=== PATIENT | female | born 1995 | race Caucasian/White ===

== ENCOUNTER 2017-02-25 14:18 | Emergency (ER) | payer OTHER ==
[2017-02-25 14:25] VITALS: BP 122/66; PULSE 86; TEMP 98; BMI 30.1
--- NOTE | 2017-02-25 15:15 | PDOC ---
History of Present Illness - General Chief Complaint: Bite Stated Complaint: SWOLLEN ARM Time Seen by Provider: 02/25/17 14:42 History Source: Patient Exam Limitations: No Limitations - History of Present Illness Initial Comments: 02/25/17 15:19 Patient is a 21-year-old female with no past medical history presenting to the emergency department today complaining of right arm swelling. Patient states that she has 3 areas on her arm that swelled up overnight. Does not remember getting bit by any bugs, but admits that these areas appear like bug bites. Admits to itching, pain and swelling. Denies numbness tingling or weakness to the arm. Patient is right-hand dominant. Past History - Travel Traveled outside of the country in the last 30 days: No Close contact w/someone who was outside of country & ill: No - Past Medical History Allergies/Adverse Reactions: Allergies Allergy/AdvReac Type Severity Reaction Status Date / Time morphine Allergy Severe Verified 02/25/17 14:25 milk Allergy Verified 02/25/17 14:25 Home Medications: Ambulatory Orders Methylprednisolone [Medrol Dose Dinesh] 4 mg PO ASDIR #21 tablet 02/25/17 Anemia: No Asthma: No Cancer: No Cardiac Disorders: No Diabetes: No HTN: No Suicide Attempt (Hx): No Seizures: No Thyroid Disease: No - Reproductive History (#): 1 Para: 0 Ectopic : Yes Therapeutic (s) & number: Yes - Immunization History Immunization Up to Date: Yes - Psycho/Social/Smoking Cessation Hx Anxiety: No Suicidal Ideation: No Smoking Status: Yes Smoking History: Never smoked Have you smoked in the past 12 months: No Number of Cigarettes Smoked Daily: 2 Cigars Per Day: 0 Information on smoking cessation initiated: No Hx Alcohol Use: No Drug/Substance Use Hx: No Substance Use Type: None Hx Substance Use Treatment: No Review of Systems - Review of Systems Able to Perform ROS?: Yes Is the patient limited Icelandic proficient: No Constitutional: No: Chills, Fever, Weakness HEENTM: No: Recent change in vision, Ear Pain, Nose Pain, Throat Pain Integumentary: Yes: Erythema (R arm), Lesions (Bites, R arm), Pruritus (R arm), Other (Swelling R arm) *Physical Exam - Vital Signs Last Vital Signs Temp Pulse Resp BP Pulse Ox 98 F 86 18 122/66 100 02/25/17 14:23 02/25/17 14:23 02/25/17 14:23 02/25/17 14:23 02/25/17 14:23 - Physical Exam General Appearance: Yes: Nourished, Appropriately Dressed. No: Apparent Distress Neck: positive: Trachea midline, Supple. negative: Tender, Rigid, Lymphadenopathy (R), Lymphadenopathy (L) Respiratory/Chest: positive: Lungs Clear, Normal Breath Sounds. negative: Respiratory Distress, Accessory Muscle Use, Rhonchi, Stridor, Wheezing Cardiovascular: positive: Regular Rhythm, Regular Rate, S1, S2 (present) Extremity: positive: Normal Capillary Refill, Normal Range of Motion. negative : Normal Inspection (See skin exam) Integumentary: positive: Dry, Warm, Erythema (3 circular areas of erythma with significant on the R arm (bicep, forearm and 2nd finger) All three areas have small bite heath in the center. ), Swelling Neurologic: positive: secret code expert II-XII NML intact, Fully Oriented, Alert, Normal Mood/ Affect, Normal Response, Motor Strength 5/5 Medical Decision Making - Medical Decision Making 02/25/17 22:53 Patient has 3 separate bug bites on her R arm that have significant swelling. Patient states that these are very itchy and painful. However patient's vital signs are stable afebrile and shows no signs of infection. We will discharge home at this time with a Medrol Dosepak to reduce the swelling. We'll also advised patient to use Benadryl cream [id number] for the itching. Patient may apply ice to the area to reduce the swelling. Patient understands all discharge instructions and we'll discharge home at this time. *DC/Admit/Observation/Transfer Diagnosis at time of Disposition: Insect bite Qualifiers: Encounter type: initial encounter Qualified Code(s): W57.XXXA - Bitten or stung by nonvenomous insect and other nonvenomous arthropods, initial encounter - Discharge Dispostion Admit: No - Prescriptions Prescriptions: Methylprednisolone [Medrol Dose Dinesh] 4 mg PO ASDIR #21 tablet - Patient Instructions Printed Discharge Instructions: DI for Insect Bites and Stings Additional Instructions: You have swelling around bug bites. You were prescribed a medrol dose pack. This is a steroid that will help to reduce the swelling and itching. Take this medication as prescribed and take the complete dose. You may take Motrin as needed for pain. You may also use a Benadryl cream topically to help with the itching. This is found over the counter. You may also ice the area to help with the pain. Return to the ED if the swelling gets worse, or if you develop signs of infection such as fevers, chills, or foul smelling drainage. - Post Discharge Activity Work/School Note: Back to Work
[2017-02-25] MEDS ORDERED: KETOROLAC TROMETHAMINE 60 MG/2 ML VIAL IM ONE (15:26)
[2017-02-25] MEDS ORDERED: KETOROLAC TROMETHAMINE 60 MG/2 ML VIAL ONE ×2 (15:30→15:31)
== END 2017-02-25 16:08 | disposition home or self-care (01) ==
LOC: JERFT 14:18
PROC: 3E0233Z Introduction of Anti-inflammatory into Muscle, Percutaneous Approach (ICD-10-PCS; principal; 2017-02-25)
DX: S40.861A Insect bite (nonvenomous) of right upper arm, initial encounter (principal); W57.XXXA Bitten or stung by nonvenomous insect and other nonvenomous arthropods, initial encounter; Y93.89 Activity, other specified; Y92.238 Other place in hospital as the place of occurrence of the external cause; Y99.8 Other external cause status
CPT/HCPCS: 99281-25

== ENCOUNTER 2017-05-22 10:55 | Emergency (ER) | payer SELFPAY ==
[2017-05-22 11:06] VITALS: TEMP 98.6; BMI 29.7
--- NOTE | 2017-05-22 11:12 | PDOC ---
History of Present Illness - General Chief Complaint: Pain, Acute Stated Complaint: VAGINAL PAIN Time Seen by Provider: 05/22/17 11:11 History Source: Patient Exam Limitations: No Limitations - History of Present Illness Initial Comments: CHIEF COMPLAINT: 21 y/o afebrile female, , c/o right lower abdominal/ pelvic pain x 4 years. HISTORY OF PRESENT ILLNESS: The patient states her LMP was 04/17/17. She states 4 days ago she started having right lower abdominal/cramping pain that is intermittent. On that day she had brown vaginal discharge but that has resolved and also admits to mild dysuria. She states she has had ovarian cysts in the past and the pain kind of feels like that but she states there is a chance she could be and she is concerned for STDs. She denies f/c, n/v /d, CP, SOB, back pain. Vital signs on arrival are within normal limits. REVIEW OF SYSTEMS: GENERAL/CONSTITUTIONAL: No fever/chills. No weakness. No weight change. HEAD, EYES, EARS, NOSE AND THROAT: No change in vision. No ear pain or discharge. No sore throat. CARDIOVASCULAR: No chest pain or shortness of breath. RESPIRATORY: No cough, wheezing, or hemoptysis. GASTROINTESTINAL: +right lower abd/pelvic pain. No nausea, vomiting, diarrhea, constipation +scant brown vaginal discharge - resolved GENITOURINARY: No dysuria, frequency, or change in urination. MUSCULOSKELETAL: No joint or muscle swelling or pain. No neck or back pain. SKIN: No rash or easy bruising. NEUROLOGIC: No headache, vertigo, loss of consciousness, or loss of sensation. PHYSICAL EXAM: GENERAL: The patient is awake, alert, and fully oriented, in no acute distress. She is very well appearing, ambulatory, in NAD or obvious discomfort. HEAD: Normal with no signs of trauma. ENT: Pupils equal, round and reactive to light, extraocular movements intact, sclera anicteric, conjunctiva clear. Neck supple. LUNGS: Clear to auscultation bilaterally. Normal excursion. No respiratory distress or use of accessory muscles. CV: RRR, S1/S2, no MRG. Cap refill < 2 sec. ABDOMEN: Soft, non-distended, TTP of RLQ and right pelvis. No flank pain. No rebound, guarding or rigidity. BACK: No CVA TTP b/l. VAGINAL: Speculum exam reveals no abnormal discharge or bleeding; no lacerations or lesions. Os closed. Digital exam reveals right adnexal tenderness and CMT. EXTREMITIES: Normal range of motion, no edema. NEUROLOGICAL: Normal speech, normal gait. CN II-XII grossly intact. PSYCH: Normal mood, normal affect. SKIN: Warm, dry, normal turgor, no rashes or lesions noted. Past History - Past Medical History Allergies/Adverse Reactions: Allergies Allergy/AdvReac Type Severity Reaction Status Date / Time milk Allergy Severe Hives Verified 05/22/17 11:02 morphine Allergy Severe Difficulty Verified 05/22/17 11:02 Breathing Home Medications: Ambulatory Orders NK [No Known Home Medication] 05/22/17 Anemia: No Asthma: No Cancer: No Cardiac Disorders: No Diabetes: No HTN: No Suicide Attempt (Hx): No Seizures: No Thyroid Disease: No - Reproductive History (#): 1 Para: 0 Ectopic : Yes Therapeutic (s) & number: Yes - Immunization History Immunization Up to Date: Yes - Psycho/Social/Smoking Cessation Hx Anxiety: No Suicidal Ideation: No Smoking Status: Yes Smoking History: Never smoked Have you smoked in the past 12 months: No Number of Cigarettes Smoked Daily: 2 Cigars Per Day: 0 Hx Alcohol Use: Yes Drug/Substance Use Hx: No Substance Use Type: Marijuana Hx Substance Use Treatment: No Abd/GI Specific PMHX - Complaint Specific PMHX GERD: No *Physical Exam - Vital Signs Last Vital Signs Temp Pulse Resp BP Pulse Ox 98.6 F 87 18 125/75 100 05/22/17 11:03 05/22/17 11:03 05/22/17 11:03 05/22/17 11:03 05/22/17 11:03 ED Treatment Course - LABORATORY CBC & Chemistry Diagram: 05/22/17 11:53 05/22/17 11:53 Medical Decision Making - Medical Decision Making A/P: 21 y/o afebrile female with right pelvic pain x 4 days. Plan is as follows: 1. Labs 2. UA/culture 3. GC/chlamydia 4. Ultrasound hcg + Ordered Beta hcg Ordered transvaginal US to r/o ectopic Transvaginal Ultrasound IMPRESSION: Possible early IUP with gestational age of 5 weeks. Blood type O Negative. Ordered Rhogam. Gave the patient all of the results. No indication of torsion or ectopic. Instructed the patient to f/u with her [employer] for repeat beta and ultrasound within 1 week. Instructed her to return to the ER with any worsening or concerning symptoms. The patient verbalizes understanding of all instructions, has no further questions and is awaiting discharge. *DC/Admit/Observation/Transfer Diagnosis at time of Disposition: Vaginal bleeding in - Discharge Dispostion Disposition: HOME Condition at time of disposition: Good - Referrals Referrals: Bindu Loja MD [Staff Physician] - 1 week - Patient Instructions Printed Discharge Instructions: DI for Vaginal Bleeding During Additional Instructions: Discharge Instructions: -You received Rhogam for vaginal bleeding in today -Please follow up with your [employer]CIAL MARKET [employer] or Dr. Loja within 1 week for repeat beta HCG and ultrasound -Return to the ER with any worsening or concerning symptoms.
[2017-05-22 12:30] LABS: MCH 31.2 pg (25.7-33.7); RDW 14.8 % (11.6-15.6); WHITE BLOOD COUNT 5.2 K/mm3 (4.0-10.0)
[2017-05-22 12:32] LABS: BASOPHIL 0.4 % (0-2.0); EOSINOPHIL 0.4 % (0-4.5); MCHC 33.2 g/dl (32.0-36.0); MEAN CELL VOLUME 94.1 fl (80-96); MEAN PLT VOLUME 7.9 fl (7.5-11.1); NEUTROPHILS 67.2 % (42.8-82.8); PLATELET COUNT 238 K/MM3 (134-434)
[2017-05-22 12:49] LABS: URINE APPEARANCE SLCLOUDY; URINE BILIRUBIN NEGATIVE (NEGATIVE); URINE BLOOD 1+ (NEGATIVE); URINE COLOR LTYELLOW; URINE GLUCOSE (UA) NEGATIVE (NEGATIVE); URINE KETONE NEGATIVE (NEGATIVE); URINE LEUK ESTERASE NEGATIVE (NEGATIVE); URINE NITRITE NEGATIVE (NEGATIVE); URINE PROTEIN NEGATIVE (NEGATIVE); URINE UROBILINOGEN NEGATIVE mg/dL (0.2-1.0)
[2017-05-22 12:55] LABS: URINE MUCUS RARE; URINE RBC 1 /hpf (0-3); URINE WBC 2 /hpf (3-5)
[2017-05-22 13:16] LABS: ALBUMIN 3.8 g/dl (3.4-5.0); ALK PHOS 48 U/L (45-117); ANION GAP 6 (8-16); BILIRUBIN,TOTAL 0.8 mg/dL (0.2-1.0); CALCIUM 8.8 mg/dL (8.5-10.1); CO2 29 mmol/L (21-32); CREATININE 0.7 mg/dL (0.55-1.02); GLUCOSE,RANDOM 55 mg/dL (74-106); SGOT/AST 18 U/L (15-37); SGPT/ALT 20 U/L (12-78); TOT PROT 7.3 g/dl (6.4-8.2)
[2017-05-22] MEDS ORDERED: RHO(D) IMMUNE GLOBULIN 1,500 UNIT DISP.SYRIN IM ONE (15:30)
[2017-05-22 16:02] VITALS: BP 113/53; PULSE 72
== END 2017-05-22 16:55 | disposition home or self-care (01) ==
LOC: JER 10:55
PROC: 3E0234Z Introduction of Serum, Toxoid and Vaccine into Muscle, Percutaneous Approach (ICD-10-PCS; principal; 2017-05-22)
DX: O26.891 Other specified pregnancy related conditions, first trimester (principal); O20.8 Other hemorrhage in early pregnancy; O36.0910 Maternal care for other rhesus isoimmunization, first trimester, not applicable or unspecified; Z3A.01 Less than 8 weeks gestation of pregnancy
CPT/HCPCS: 36415; 76817-TC; 80053; 81003; 81015; 84702; 84703; 85025; 86850; 86900; 86901; 86999; 87491; 87591; 99282-25; J1561

== ENCOUNTER 2017-12-22 03:14 | Emergency (ER) | payer OTHER ==
[2017-12-22 03:22] VITALS: TEMP 98.5; BMI 28.3
--- NOTE | 2017-12-22 03:26 | PDOC ---
History of Present Illness <Mendel Hancock - Last Filed: 12/22/17 06:17> - General History Source: Patient Exam Limitations: No Limitations - History of Present Illness Initial Comments: 12/22/17 04:41 22 year old female with no pmhx presented to the ED due to sever right ankle pain after she twisted her leg while she was ruining ,She denies any numbness , tingling . pt denies any headache , blurry vision , N/V/D/C. denies any chest pain abdominal pain or urunary symptoms PMH: None PSH: C section Allergies : Morphine and milK Social"denies smoking alcohol or drug use \\ GENERAL: Awake, alert, in NAD HEAD: No signs of trauma, normocephalic, atraumatic EYES: PERRLA, EOMI, sclera anicteric, conjunctiva clear ENT: Auricles normal inspection, hearing grossly normal, nares patent, oropharynx clear without exudates. Moist mucosa NECK: Normal ROM, supple, LUNGS: CTA B/L HEART: Regular rate and rhythm, normal S1 and S2, no murmurs, rubs or gallops, peripheral pulses normal and equal bilaterally. ABDOMEN: Soft, nontender, normoactive bowel sounds. No guarding, no rebound. No masses EXTREMITIES: right ankle swelling , limited ROM due to pain , +2 DP , sensation intact Neuro: no focal deficit SKIN: Warm, Dry, Work Up 1000 mg IV Acetaminophen Foot and ankle xray right 12/22/17 04:53 12/22/17 06:19 close reduction was performed and leg was placed in splint pt needs to follow up with orthopedic surgeon within 3 days repeat cxr ordered after the splint. <Barney Reynaga - Last Filed: 12/22/17 06:21> - General Chief Complaint: Pain Stated Complaint: RIGHT ANKLE INJURY Time Seen by Provider: 12/22/17 03:26 Past History <SantiMendel - Last Filed: 12/22/17 06:17> - Past Medical History Anemia: No Asthma: Yes Cancer: No Cardiac Disorders: No COPD: No Diabetes: No HTN: No Seizures: No Thyroid Disease: No - Reproductive History (#): 1 Para: 0 Ectopic : Yes Therapeutic (s) & number: Yes - Immunization History Immunization Up to Date: Yes - Suicide/Smoking/Psychosocial Hx Smoking Status: Yes Smoking History: Never smoked Have you smoked in the past 12 months: No Number of Cigarettes Smoked Daily: 2 Cigars Per Day: 0 Information on smoking cessation initiated: No Hx Alcohol Use: No Drug/Substance Use Hx: No Substance Use Type: Marijuana Hx Substance Use Treatment: No <Barney Reynaga - Last Filed: 12/22/17 06:21> - Past Medical History Allergies/Adverse Reactions: Allergies Allergy/AdvReac Type Severity Reaction Status Date / Time milk Allergy Severe Hives Verified 12/22/17 03:18 morphine Allergy Severe Difficulty Verified 12/22/17 03:18 Breathing Home Medications: Ambulatory Orders NK [No Known Home Medication] 05/22/17 *Physical Exam - Vital Signs Last Vital Signs Temp Pulse Resp BP Pulse Ox 98.5 F 130 H 24 138/104 99 12/22/17 03:18 12/22/17 03:18 12/22/17 03:18 12/22/17 03:18 12/22/17 03:18 <Mendel Hancock - Last Filed: 12/22/17 06:17> - Vital Signs Last Vital Signs Temp Pulse Resp BP Pulse Ox 98.5 F 130 H 24 138/104 99 12/22/17 03:18 12/22/17 03:18 12/22/17 03:18 12/22/17 03:18 12/22/17 03:18 <Barney Reynaga - Last Filed: 12/22/17 06:21> ED Treatment Course - ADDITIONAL ORDERS Additional order review: Laboratory Results 12/22/17 12/22/17 04:47 03:40 Serum , Qual Negative Urine HCG, Qual Negative - RADIOLOGY Radiology Studies Ordered: Category Date Time Status ANKLE & FOOT-RIGHT* [RAD] Stat Radiology 12/22/17 04:11 Taken ANKLE-RIGHT [RAD] Stat Radiology 12/22/17 06:17 Ordered - Medications Given in the ED: ED Medications Discontinued Medications Generic Name Dose Route Start Last Admin Trade Name Freq PRN Reason Stop Dose Admin Acetaminophen 1,000 mg 12/22/17 03:30 12/22/17 03:42 Ofirmev Injection - IVPB 12/22/17 03:31 1,000 mg ONCE ONE Administration Hydromorphone HCl 0.5 mg 12/22/17 03:38 12/22/17 04:41 Dilaudid Injection - IVPUSH 12/22/17 03:39 Not Given ONCE ONE <Mendel Hancock - Last Filed: 12/22/17 06:17> *DC/Admit/Observation/Transfer <Mendel Hancock - Last Filed: 12/22/17 06:17> <Barney Reynaga - Last Filed: 12/22/17 06:21> Diagnosis at time of Disposition: Ankle fracture - Referrals Referrals: Carlotta Lyons [Primary Care Provider] - Girish Martell MD [Staff Physician] - - Patient Instructions Printed Discharge Instructions: DI for Ankle Fracture Additional Instructions: You have a fracture of your right ankle. Keep your leg in the splint at ALL times until you are able to follow up with an orthopedic surgeon. Do not bear any weight on this leg. Call the number provided to make an appointment with our orthopedic surgeon TODAY. If you experience worsening pain, swelling, numbness, or any other concerning symptoms, return to the ER immediately.
[2017-12-22] MEDS ORDERED: ACETAMINOPHEN 1000 MG/100 ML VIAL (NON FORMULARY) IVPB ONE (03:30)
[2017-12-22] MEDS ORDERED: ACETAMINOPHEN INJECTION 100 ML IVPB ONE (03:32)
[2017-12-22] MEDS ORDERED: HYDROmorphone HCL CARPU-JECT 1 MG/1 ML DISP.SYRIN IVPUSH ONE ×2 (03:38→05:37)
--- NOTE | 2017-12-22 05:12 | PDOC ---
Attending Attestation - Resident Resident Name: Barney Reynaga - ED Attending Attestation I have performed the following: I have examined & evaluated the patient, The case was reviewed & discussed with the resident, I agree w/resident's findings & plan, Exceptions are as noted - HPI HPI: 12/22/17 05:08 "Patient is a 22 year old female with no significant past medical history who presents to the ED with complaints of right ankle pain. Patient reports walking down the stairs when she lost her balance causing her to trip and fall. Pt turned her R ankle inward. She states that she hit her face against the wall but denies LOC. Denies neck pain. Denies headache. She reports being unable to bear any weight on her right ankle immediately after incident. Denies pain anywhere else. Denies head trauma, loss of consciousness. Denies chest pain, Sob. Denies nausea , vomiting, Denies constipation, diarrhea. Denies any other symptoms. Allergies: Morphine, Milk Social history: Lives with child. No smoking. No alcohol. No illicit drugs. Surgical history: None PMD:None - Physicial Exam PE: 12/22/17 05:10 "GENERAL: Awake, alert, and fully oriented, in no acute distress HEAD: No signs of trauma, no chiu's sign EYES: PERRLA, EOMI, sclera anicteric, conjunctiva clear, no raccoon's eyes ENT: No hemotympanum, Auricles normal inspection, hearing grossly normal, nares patent, oropharynx clear without exudates. Moist mucosa NECK: Nontender, no stepoffs, Normal ROM, supple, no lymphadenopathy, JVD, or masses LUNGS: Breath sounds equal, clear to auscultation bilaterally. No wheezes, and no crackles HEART: Regular rate and rhythm, normal S1 and S2, no murmurs, rubs or gallops ABDOMEN: Soft, nontender, normoactive bowel sounds. No guarding, no rebound. No masses EXTREMITIES: R ankle with joint effusion, tenderness over lateral malleolus, upper extremities wnl, no abrasions/lacerations, no deformity, no snuffbox tenderness NEUROLOGICAL: Cranial nerves II through XII intact. 5/5 strength and sensation in all extremities, Normal speech, normal gait, normal cerebellar function SKIN: Warm, Dry, normal turgor, no rashes or lesions noted. - Medical Decision Making 12/22/17 05:11 22 F with R ankle pain and swelling. Possible ankle fx vs sprain. Pt neurovascularly intact distal to injury. Pt with no other signs of traumatic injury on exam. No signs of head trauma, no neck tenderness. - UPT - R ankle XR - Pain control 12/22/17 05:32 XR with lateral malleolus fx. 12/22/17 06:23 Pt given ketamine 50mg IV for analgesia Ankle reduced, placed in posterior short leg splint. Post-reduction X ray obtained Pt is well appearing, Clinically stable for DC at this time. I discussed the physical exam findings, ancillary test results and final diagnoses with the patient. I answered all of the patient's questions. The patient was satisfied with the care received and felt comfortable with the discharge plan and treatment plan. The patient agrees to follow up with ortho within 24-72 hours. Procedures - Splinting Splint Location: Right: Ankle Pre-Proc Neuro Vasc Exam: normal Hand-Made Type: orthoglass Splint Type: Yes: Short Leg Post-Proc Neuro Vasc Exam: normal Niko Bandage: 4" Complications: No Post splint xray: Yes
[2017-12-22] MEDS ORDERED: KETAMINE HCL 200 MG/20 ML VIAL IVPUSH ONE (05:45)
[2017-12-22] MEDS ORDERED: KETAMINE HCL 200 MG/20 ML VIAL ONE (05:46)
[2017-12-22 06:21] VITALS: BP 108/65; PULSE 114
[2017-12-22] MEDS ORDERED: SODIUM CHLORIDE 1,000 ML IV STA (06:25)
== END 2017-12-22 08:11 | disposition home or self-care (01) ==
LOC: JER 03:14
PROC: 0QSJXZZ Reposition Right Fibula, External Approach (ICD-10-PCS; principal; 2017-12-22)
PROC: 2W3QX1Z Immobilization of Right Lower Leg using Splint (ICD-10-PCS; 2017-12-22)
DX: S82.831A Other fracture of upper and lower end of right fibula, initial encounter for closed fracture (principal); X50.1XXA Overexertion from prolonged static or awkward postures, initial encounter; Y93.02 Activity, running; Y92.89 Other specified places as the place of occurrence of the external cause; Y99.8 Other external cause status
CPT/HCPCS: 27788; 29515; 36415; 73610-TC-RT-FY; 73630-TC-RT-FY; 84703; 99282-25; J0131